=== PATIENT | male | born 1985 | race Native Hawaiian/Other Pacific Islander ===

== ENCOUNTER 2022-09-03 09:03 | Emergency (ER) | payer OTHER ==
[~2022-09-03] VITALS: Ht 185.4 cm; Wt 83.9 kg
== END 2022-09-03 11:30 | disposition home or self-care (01) ==
LOC: ED 09:03
DX: Z20.2 Contact with and (suspected) exposure to infections with a predominantly sexual mode of transmission (principal)
CPT/HCPCS: 81002; 87088; 96372; 99283; J0696